=== PATIENT | female | born 1995 | race Caucasian/White ===

== ENCOUNTER → 2016-11-09 | Outpatient (CLI) | payer BC, OTHER ==
--- NOTE | 2016-11-10 05:29 | REP ---
Clinical: Anatomical evaluation. Comparison: None . Findings: Examination demonstrates a single live intrauterine in breech presentation. motion is identified by technologist. Placenta is noted anteriorly and grade zero without evidence for placenta previa or abruption. Amniotic fluid volume is normal. Cervix measures 4.1 cm in length and appears closed. No evidence for nuchal cord. Gestational age by current measurements 19 weeks 0 days with KARINA 04/05/2017. FHR equals 150 beats per minute. BPD 4.6 cm 20 weeks 0 days HC 16.2 cm 19 weeks 0 days AC 13.4 cm 18 weeks 6 days FL 2.9 cm 19 weeks 0 days HL 2.9 cm 19 weeks 2 days HC/AC ratio 1.20 Estimated weight 267 grams ( 45th percentile). Anatomical assessment demonstrates normal structures including cranium, choroid plexus, cavum, cerebellum/posterior fossa, facial features, lungs, four-chamber heart/ventricular outflow tracts, diaphragm, stomach, cord insertion/three-vessel cord, kidneys/bladder, spine, and extremities. Impression: Single live intrauterine in breech presentation demonstrating normal complete anatomical assessment. Signed by Chuck Priest MD 11/10/2016 05:20 A
== END ==
LOC: M SMT 14:31
PROVIDERS: ATTEND Advanced Practice Midwife
DX: Z34.82 Encounter for supervision of other normal pregnancy, second trimester (principal)

== ENCOUNTER → 2017-01-04 | Outpatient (CLI) | payer OTHER ==
[2017-01-04 12:47] LABS: MEAN CORPUSCULAR HEMOGLOBIN 29.2 pg (27.0-33.0); MEAN CORPUSCULAR HGB CONC 32.4 g/dl (32.0-36.5); MEAN CORPUSCULAR VOLUME 90.1 fl (80.0-96.0); RED CELL DISTRIBUTION WIDTH 13.3 % (11.5-14.5); WHITE BLOOD COUNT 12.1 K/mm3 (4.0-10.0)
== END ==
LOC: M SMT 08:58
PROVIDERS: ATTEND Advanced Practice Midwife
DX: Z34.82 Encounter for supervision of other normal pregnancy, second trimester (principal)

== ENCOUNTER → 2017-01-16 | Outpatient (CLI) | payer OTHER | LOC: M LAB 08:25 | PROVIDERS: ATTEND Advanced Practice Midwife | DX: Z34.02 Encounter for supervision of normal first pregnancy, second trimester (principal) ==

== ENCOUNTER → 2017-03-13 | Outpatient (REF) | payer OTHER | LOC: M LAB REF 16:49 | PROVIDERS: ATTEND Advanced Practice Midwife | DX: Z34.83 Encounter for supervision of other normal pregnancy, third trimester (principal) ==

== ENCOUNTER 2017-03-28 08:54 | Outpatient (CLI) | payer OTHER ==
[~2017-03-28] VITALS: Ht 161.3 cm; Wt 73.0 kg
[2017-03-28] MEDS ORDERED: PRENTAB9 PO (09:16)
[2017-03-28 09:19] VITALS: BP 130/79
== END 2017-03-28 11:23 | disposition home or self-care (01) ==
LOC: M LDO 08:54
PROVIDERS: ATTEND Advanced Practice Midwife
DX: O26.893 Other specified pregnancy related conditions, third trimester (principal); O99.513 Diseases of the respiratory system complicating pregnancy, third trimester; Z3A.38 38 weeks gestation of pregnancy; J45.909 Unspecified asthma, uncomplicated

== ENCOUNTER 2017-03-31 01:47 | Inpatient (IN) | payer OTHER ==
[2017-03-31] VITALS (45 sets, daily range): BP systolic 100–153; BP diastolic 55–91
[~2017-03-31] VITALS: Ht 160 cm; Wt 74.0 kg
[~2017-03-31 01:47] MED LIST: PRENTAB9 PO
[2017-03-31] MEDS ORDERED: LR 1,000 ML IV SCH ×2 (02:47→09:46)
[2017-03-31] MEDS ORDERED: LACTATED RINGER'S 1000 ML IV STA (02:47)
[2017-03-31 03:13] LABS: MEAN CORPUSCULAR HEMOGLOBIN 30.7 pg (27.0-33.0); MEAN CORPUSCULAR HGB CONC 34.5 g/dl (32.0-36.5); MEAN CORPUSCULAR VOLUME 89.2 fl (80.0-96.0); RED CELL DISTRIBUTION WIDTH 12.8 % (11.5-14.5); WHITE BLOOD COUNT 13.9 K/mm3 (4.0-10.0)
[2017-03-31] MEDS ORDERED: PROMETHAZINE INJ 25 MG/ML VIAL (J2550) IV ONE (03:15)
[2017-03-31] MEDS ORDERED: BUTORPHANOL 2 MG/ML INJ (J0595) IV ONE (03:15)
--- NOTE | 2017-03-31 03:27 | HPE ---
DATE OF ADMISSION: 03/31/2017 Suni is a 21-year-old 1, para 0 at 39-1/7 weeks gestation with an estimated date of confinement (EDC) of 04/05/2017, based on last normal menstrual period and confirmed by first trimester ultrasound. She presents to labor and delivery today with report of uncomfortable contractions every 3-5 minutes. Denies vaginal bleeding and leakage of fluid. Her fetus has been active. care was initiated at [facility] in the first trimester. course complicated by history of asthma, well controlled. OBSTETRICAL HISTORY: Primigravida. OBSTETRICAL LABORATORIES: O positive, antibody screen negative, rubella immune, VDRL nonreactive. Urine culture no growth. Hepatitis B surface antigen negative, HIV negative. Hepatitis C antibody negative. Gonorrhea and chlamydia negative. She did decline all genetic screening labs. Gestational diabetic screening elevated at 142 with normal 3-hour GTT, fasting 76, 1-hour 133, 2-hour 127 and 3-hour 91. Her GBS is negative. PAST MEDICAL HISTORY: Asthma, spinal meningitis as a . SURGERIES: Left compound fracture of her arm, tubes in her ears, wisdom teeth removal. FAMILY HISTORY: Hypertension. SOCIAL HISTORY: The patient is single. However, the father of the baby is at bedside and supportive. She is a nonsmoker. Denies alcohol and drug use. No history of sexually transmitted infections and denies history of abuse physical, sexual and emotional. ALLERGIES: CEFZIL. CURRENT MEDICATIONS: vitamin and Ventolin inhaler as needed. OBJECTIVE: Temperature 98.5, pulse 80, blood pressure 137/86. She is alert and oriented times three. She is tense with each contraction. heart rate is 135, moderate variability, positive accelerations. No decelerations noted. Anish every 3 minutes, moderate to palpation. Sterile vaginal exam: 2-3 cm dilated, 100% effaced, and zero station. Membranes are intact. Abdomen is gravid, cephalic presentation. Estimated weight 7-1/2 pounds. ASSESSMENT: Intrauterine at 39-2/7 weeks gestation, heart rate category one, active labor. PLAN: Admit the patient to labor and delivery. Out of bed ad clover. Clear liquid diet. Intravenous (IV) fluid bolus. Labs as ordered. The patient will likely desire an epidural when she is more uncomfortable. I do anticipate continued progress and a normal spontaneous vaginal delivery.
[2017-03-31] MEDS ORDERED: OXYTOCIN DRIP 30 UNITS in APPROPRIATE DILUENT 1 EA IV SCH ×2 (10:00→21:31)
[2017-03-31] MEDS ORDERED: FENTANYL 2MCG/ML ROPIVACAINE 0.2% IN 0.9% NACL 200ML IVBAG As Ordered ONE (13:17)
[2017-03-31] MEDS ORDERED: diphenhydrAMINE INJ 50MG/ML VIAL (J1200) IV PRN (14:00)
[2017-03-31] MEDS ORDERED: EPIDURAL/PCA KEYS XX PRN (14:00)
[2017-03-31] MEDS ORDERED: ePHEDrine SULFATE 25 MG/5 ML(5MG/ML) SYRINGE IV PRN (14:00)
[2017-03-31] MEDS ORDERED: NALOXONE INJ 0.4 MG/1 ML VIAL (J2310) IV PRN (14:00)
[2017-03-31] MEDS ORDERED: ONDANSETRON 4MG/2ML VIAL (J2405) IV PRN (14:00)
[2017-03-31] MEDS ORDERED: LACTATED RINGER'S 1000 ML IV PRN (14:00)
[2017-03-31] MEDS ORDERED: REFRIGERATOR IV KEYS XX PRN (14:00)
[2017-03-31] MEDS ORDERED: EPIDURAL COMMENT XX SCH (14:00)
[2017-03-31] MEDS ORDERED: FENTANYL/ROPIVACAINE/NACL BAG 200 ML EPIDURAL SCH (14:00)
[2017-03-31] MEDS ORDERED: RHOGAM 300 MCG (1500 IU) INJ (J2790) IM SCH (21:45)
[2017-03-31] MEDS ORDERED: DIBUCAINE 1% OINTMENT 30GM TOP PRN (21:45)
[2017-03-31] MEDS ORDERED: MEASLES,MUMPS,RUBELLA VACCINE INJ (MMR-II) (90707) SC SCH (21:45)
[2017-03-31] MEDS ORDERED: DOCUSATE SODIUM 100 MG CAP PO PRN (21:45)
[2017-03-31] MEDS ORDERED: METHYLERGONOVINE MALEATE 0.2 MG TAB PO PRN (21:45)
--- NOTE | 2017-03-31 23:36 | DN ---
DATE: 03/31/2017 Suni is a 21-year-old 1, para 1-0-0-1, now admitted to labor delivery in active labor. She did utilize an epidural for her labor coping. Intravenous (IV) pitocin was utilized to augment her labor. She reached full dilation at 2032 hours. She pushed to a normal spontaneous vaginal delivery of a live female in occiput anterior (OA) position with restitution to left occiput transverse (LOT) position at 2105 hours. There was no nuchal cord. The shoulders delivered with gentle downward traction and the corpus immediately followed. female was placed on maternal abdomen crying and active. Mouth and nares were bulb suctioned. The cord was clamped time two and cut by the father of the baby. A spontaneous expulsion of an intact placenta with three-vessel cord by Sena mechanism was at 2115 hours. Uterine hemostasis achieved with IV pitocin rapid infusion and uterine fundal massage. Estimated blood loss 250 mL. Perineum and vagina inspected, noted to have bilateral labial lacerations, which were repaired with 3-0 Rapide in interrupted sutures. [place] female weighed 8 pounds 1 ounce, 3650 grams, scores of 9 and 9. Mom plans to bottle feed the daughter and the family have named her Pedro. At the close of delivery, lap counts, needle counts and instrument counts were correct and verified.
[2017-03-31] MEDS: IBUPROFEN 800 MG TAB PO PRN (23:40)
[2017-04-01] MEDS: ACETAMINOPHEN 500 MG TAB PO PRN ×2 (03:12→15:18)
[2017-04-01 06:00] VITALS: BP 128/64
[2017-04-01] MEDS: PRENATAL VITAMIN TAB PO SCH (09:04)
[2017-04-01] MEDS: IBUPROFEN 800 MG TAB PO PRN ×2 (09:05→19:52)
[2017-04-01 18:00] VITALS: BP 123/69
[2017-04-01 19:45] VITALS: BP 123/69
[2017-04-02] MEDS: IBUPROFEN 800 MG TAB PO PRN (00:21)
[2017-04-02 05:24] VITALS: BP 111/60
[2017-04-02] MEDS ORDERED: IBUP-1114 PO (07:36)
[2017-04-02] MEDS ORDERED: ACET50TA PO (07:36)
[2017-04-02] MEDS: ACETAMINOPHEN 500 MG TAB PO PRN (08:02)
[2017-04-02] MEDS: PRENATAL VITAMIN TAB PO SCH (08:02)
== END 2017-04-02 15:30 | disposition home or self-care (01) | DRG 560 ==
LOC: M LDO 01:47 → M LDI 02:26 → M OBS 23:20
PROVIDERS: ADMIT Advanced Practice Midwife; ATTEND Advanced Practice Midwife
PROC: 10E0XZZ Delivery of Products of Conception, External Approach (ICD-10-PCS; principal; 2017-03-31)
PROC: 0HQ9XZZ Repair Perineum Skin, External Approach (ICD-10-PCS; 2017-03-31)
DX: O99.52 Diseases of the respiratory system complicating childbirth (principal); J45.909 Unspecified asthma, uncomplicated; Z82.49 Family history of ischemic heart disease and other diseases of the circulatory system; Z88.1 Allergy status to other antibiotic agents; Z79.899 Other long term (current) drug therapy; Z37.0 Single live birth; Z3A.39 39 weeks gestation of pregnancy; O70.0 First degree perineal laceration during delivery

== ENCOUNTER → 2017-06-04 | Outpatient (REF) | payer OTHER ==
[~2017-06-04] MED LIST changes: +ACET50TA PO; +IBUP-1114 PO
== END ==
LOC: M LABDRAWC 16:29
PROVIDERS: ATTEND Advanced Practice Midwife
DX: N91.0 Primary amenorrhea (principal)

== ENCOUNTER → 2018-06-17 | Outpatient (REF) | payer OTHER | LOC: M LAB REF 17:28 | DX: Z12.4 Encounter for screening for malignant neoplasm of cervix (principal) ==

== ENCOUNTER → 2018-10-02 | Outpatient (REF) | payer OTHER ==
[2018-10-02 18:45] LABS: CHLAMYDIA DNA AMPLIFICATION NEGATIVE (NEGATIVE); GC DNA AMPLIFICATION NEGATIVE (NEGATIVE)
== END ==
LOC: M SFHCCLAY 10:30
DX: N89.8 Other specified noninflammatory disorders of vagina (principal)
CPT/HCPCS: 87086

== ENCOUNTER → 2018-12-31 | Outpatient (REF) | payer OTHER ==
[~2018-12-31] MED LIST changes: -ACET50TA PO; +MAPA500T2 PO
[2018-12-31 15:46] LABS: CHLAMYDIA DNA AMPLIFICATION NEGATIVE (NEGATIVE); GC DNA AMPLIFICATION NEGATIVE (NEGATIVE)
== END ==
LOC: M LAB REF 13:08
PROVIDERS: ATTEND Advanced Practice Midwife
DX: Z11.3 Encounter for screening for infections with a predominantly sexual mode of transmission (principal); R30.0 Dysuria

== ENCOUNTER → 2018-12-31 | Outpatient (CLI) | payer OTHER ==
[2019-01-01 11:02] LABS: HIV 1&2 SCREEN CENTAUR NEGATIVE (NEGATIVE)
== END ==
LOC: M SMT 08:20
PROVIDERS: ATTEND Advanced Practice Midwife
DX: Z11.3 Encounter for screening for infections with a predominantly sexual mode of transmission (principal)

== ENCOUNTER → 2019-11-28 | Outpatient (REF) | payer OTHER | LOC: M SFHCCLAY 09:43 | PROVIDERS: ATTEND Nurse Practitioner Family | DX: J02.9 Acute pharyngitis, unspecified (principal) ==

== ENCOUNTER → 2020-01-16 | Outpatient (CLI) | payer OTHER ==
--- NOTE | 2020-01-16 11:03 | REP ---
Left shoulder: Four views. History: Injury. Findings: The left glenohumeral joint is normally aligned. No fracture is seen. The left distal clavicle is aligned a few millimeters superior with respect to the acromion process and I cannot exclude a mild AC separation injury. This should be correlated with area of tenderness to palpation and clinical symptoms. No glenohumeral dislocation is seen. Impression: No fracture noted. Question mild AC separation injury. Electronically Signed by Oliver Mejia MD 01/16/2020 10:54 A
== END ==
LOC: M CLY 10:32
PROVIDERS: ATTEND Nurse Practitioner Family
DX: S49.92XA Unspecified injury of left shoulder and upper arm, initial encounter (principal); X58.XXXA Exposure to other specified factors, initial encounter; Y92.9 Unspecified place or not applicable; Y93.9 Activity, unspecified

== ENCOUNTER → 2020-09-06 | Outpatient (REF) | payer OTHER | LOC: M PLALAB 16:09 | PROVIDERS: ATTEND Advanced Practice Midwife | DX: R63.5 Abnormal weight gain (principal) ==

== ENCOUNTER → 2020-09-08 | Outpatient (REF) | payer OTHER | LOC: M PLALAB 11:09 | PROVIDERS: ATTEND Advanced Practice Midwife | DX: R63.5 Abnormal weight gain (principal) ==

== ENCOUNTER → 2021-07-25 | Outpatient (REF) | payer OTHER | LOC: M SFHCCAPE 14:06 | PROVIDERS: ATTEND Physician Assistant | DX: N89.8 Other specified noninflammatory disorders of vagina (principal) ==

== ENCOUNTER → 2021-07-26 | Outpatient (REF) | payer OTHER ==
[2021-07-27 13:51] LABS: GC DNA AMPLIFICATION NEGATIVE (NEGATIVE)
== END ==
LOC: M SFHCCLAY 14:55
PROVIDERS: ATTEND Physician Assistant
DX: N89.8 Other specified noninflammatory disorders of vagina (principal)

== ENCOUNTER → 2021-09-01 | Outpatient (REF) | payer OTHER | LOC: M SFHCCAPE 10:10 | PROVIDERS: ATTEND Physician Assistant | DX: N89.8 Other specified noninflammatory disorders of vagina (principal) ==

== ENCOUNTER → 2021-09-19 | Outpatient (REF) | payer OTHER | LOC: M SFHCCLAY 16:32 | PROVIDERS: ATTEND Physician Assistant | DX: R50.9 Fever, unspecified (principal) ==

== ENCOUNTER → 2021-10-03 | Outpatient (REF) | payer OTHER | LOC: M SFHCWAGY 13:16 | PROVIDERS: ATTEND Advanced Practice Midwife | DX: Z12.4 Encounter for screening for malignant neoplasm of cervix (principal) ==

== ENCOUNTER → 2021-11-29 | Outpatient (REF) | payer OTHER ==
[2021-11-30 11:40] LABS: HEMATOCRIT 43.2 % (36.0-47.0); MEAN CORPUSCULAR HGB CONC 32.4 g/dl (32.0-36.5); MEAN CORPUSCULAR VOLUME 89.6 fl (80.0-96.0); PLATELET COUNT, AUTOMATED 372 10^3/uL (150-450); RED BLOOD COUNT 4.82 10^6/uL (4.00-5.40); WHITE BLOOD COUNT 10.2 10^3/uL (4.0-10.0)
[2021-11-30 12:04] LABS: ERYTHROCYTE SEDIMENTATION RATE 3 mm/hr (0-20)
[2021-11-30 12:35] LABS: ALBUMIN 4.3 GM/DL (3.2-5.2); ALT/SGPT 19 U/L (12-78); BILIRUBIN,TOTAL 0.3 MG/DL (0.2-1.0); BLOOD UREA NITROGEN 10 MG/DL (7-18); CALCIUM LEVEL 9.8 MG/DL (8.5-10.1); CARBON DIOXIDE LEVEL 27 MEQ/L (21-32); CHLORIDE LEVEL 106 MEQ/L (98-107); CREATININE FOR GFR 0.68 MG/DL (0.55-1.30); GLOMERULAR FILTRATION RATE > 60.0 (>60); GLUCOSE, FASTING 87 MG/DL (70-100); SODIUM LEVEL 139 MEQ/L (136-145); TOTAL PROTEIN 7.5 GM/DL (6.4-8.2)
[2021-12-01 17:11] LABS: H PYLORI SERUM QUANT IgG ABY 0.21 (0.00-0.79)
== END ==
LOC: M SFHCCLAY 13:47
PROVIDERS: ATTEND Family Medicine
DX: K52.9 Noninfective gastroenteritis and colitis, unspecified (principal)

== ENCOUNTER → 2021-12-13 | Outpatient (REF) | payer OTHER | LOC: M SFHCCLAY 09:16 | PROVIDERS: ATTEND Family Medicine | DX: E87.5 Hyperkalemia (principal) ==

== ENCOUNTER → 2022-02-14 | Outpatient (REF) | payer OTHER ==
[2022-02-14 17:22] LABS: GC DNA AMPLIFICATION NEGATIVE (NEGATIVE)
== END ==
LOC: M SFHCCAPE 12:00
PROVIDERS: ATTEND Physician Assistant
DX: N89.8 Other specified noninflammatory disorders of vagina (principal); N94.9 Unspecified condition associated with female genital organs and menstrual cycle; Z11.3 Encounter for screening for infections with a predominantly sexual mode of transmission

== ENCOUNTER → 2023-07-02 | Outpatient (REF) | payer OTHER | LOC: M SFHCWAGY 18:33 | PROVIDERS: ATTEND Advanced Practice Midwife | DX: N90.89 Other specified noninflammatory disorders of vulva and perineum (principal); L91.8 Other hypertrophic disorders of the skin ==

== ENCOUNTER → 2023-12-17 | Outpatient (REF) | payer OTHER ==
[2023-12-17 18:36] LABS: FREE T4 1.07 NG/DL (0.89-1.76); THYROID STIMULATING HORMONE 1.806 uIU/ML (0.55-4.78)
[2023-12-17 18:39] LABS: ALBUMIN 4.1 G/DL (3.2-5.2); ALKALINE PHOSPHATASE 66 U/L (46-116); ALT/SGPT 15 U/L (7.0-40); AST/SGOT 14 U/L (<34); BILIRUBIN,TOTAL 0.4 MG/DL (0.3-1.2); BLOOD UREA NITROGEN 10 MG/DL (9-23); CALCIUM LEVEL 9.5 MG/DL (8.5-10.1); CARBON DIOXIDE LEVEL 29 MMOL/L (20-31); CHLORIDE LEVEL 106 MMOL/L (98-107); CHOLESTEROL LEVEL 198 MG/DL (<200); CREATININE FOR GFR 0.63 MG/DL (0.55-1.30); GLOMERULAR FILTRATION RATE > 60.0 (>60); GLUCOSE, FASTING 87 MG/DL (60-100); LDL CHOLESTEROL 106.6 MG/DL (<100); POTASSIUM SERUM 4.2 MMOL/L (3.5-5.1); SODIUM LEVEL 138 MMOL/L (136-145); TOTAL PROTEIN 7.3 G/DL (5.7-8.2); TRIGLYCERIDES LEVEL 77 MG/DL (<150)
[2023-12-17 19:15] LABS: HEMOGLOBIN A1c 5.3 % (4.0-6.0)
== END ==
LOC: M SFHCCLAY 10:33
PROVIDERS: ATTEND Nurse Practitioner Family
DX: E66.3 Overweight (principal); R53.83 Other fatigue

== ENCOUNTER → 2024-03-24 | Outpatient (REF) | payer OTHER | LOC: M SFHCCLAY 08:09 | PROVIDERS: ATTEND Nurse Practitioner Family | DX: R14.0 Abdominal distension (gaseous) (principal); R63.5 Abnormal weight gain; F41.9 Anxiety disorder, unspecified; F32.9 Major depressive disorder, single episode, unspecified ==

== ENCOUNTER → 2024-03-24 | Outpatient (REF) | payer OTHER | LOC: M LABDRAWC 11:07 | PROVIDERS: ATTEND Nurse Practitioner Family | DX: R14.0 Abdominal distension (gaseous) (principal) ==

== ENCOUNTER → 2024-07-28 | Outpatient (REF) | payer OTHER ==
[2024-07-28 17:52] LABS: ALBUMIN 4.3 G/DL (3.2-5.2); ALKALINE PHOSPHATASE 67 U/L (46-116); ALT/SGPT 13 U/L (7.0-40); AST/SGOT 10 U/L (<34); BILIRUBIN,TOTAL 0.5 MG/DL (0.3-1.2); BLOOD UREA NITROGEN 13 MG/DL (9-23); CALCIUM LEVEL 10.3 MG/DL (8.5-10.1); CARBON DIOXIDE LEVEL 28 MMOL/L (20-31); CHLORIDE LEVEL 104 MMOL/L (98-107); CREATININE FOR GFR 0.68 MG/DL (0.55-1.30); GLOMERULAR FILTRATION RATE > 60.0 (>60); GLUCOSE, FASTING 92 MG/DL (60-100); POTASSIUM SERUM 5.3 MMOL/L (3.5-5.1); SODIUM LEVEL 139 MMOL/L (136-145); TOTAL PROTEIN 7.7 G/DL (5.7-8.2)
== END ==
LOC: M SFHCCLAY 09:38
PROVIDERS: ATTEND Nurse Practitioner Family
DX: R14.0 Abdominal distension (gaseous) (principal)

== ENCOUNTER → 2025-03-04 | Outpatient (CLI) | payer OTHER | LOC: M RAD 08:13 | PROVIDERS: ATTEND Student in an Organized Health Care Education/Training Program | DX: S72.061A Displaced articular fracture of head of right femur, initial encounter for closed fracture (principal); W18.30XA Fall on same level, unspecified, initial encounter; Y92.009 Unspecified place in unspecified non-institutional (private) residence as the place of occurrence of the external cause ==

== ENCOUNTER → 2025-05-18 | Outpatient (CLI) | payer OTHER | LOC: M WHC 13:01 | PROVIDERS: ATTEND Nurse Practitioner Family | DX: S32.401S Unspecified fracture of right acetabulum, sequela (principal); M85.89 Other specified disorders of bone density and structure, multiple sites ==

== ENCOUNTER → 2025-09-29 | Outpatient (REF) | payer OTHER | LOC: M SFHCWAGY 18:12 | PROVIDERS: ATTEND Advanced Practice Midwife | DX: Z12.4 Encounter for screening for malignant neoplasm of cervix (principal) ==